=== PATIENT | female | born 1940 | race Caucasian/White ===

== ENCOUNTER → 2017-05-02 | Outpatient (CLI) | payer OTHER, MEDICARE | LOC: CIMAGING 13:56 | PROVIDERS: ATTEND Family Medicine | DX: Z12.31 Encounter for screening mammogram for malignant neoplasm of breast (principal) | CPT/HCPCS: G0202 ==

== ENCOUNTER → 2017-06-18 | Outpatient (CLI) | payer OTHER, MEDICARE ==
[~2017-06-18] MED LIST: IOPAMIDOL (ISOVUE-300) 100 ML BTL ONE
== END ==
LOC: CIMAGING 14:37
PROVIDERS: ATTEND Family Medicine
DX: K57.30 Diverticulosis of large intestine without perforation or abscess without bleeding (principal); K59.00 Constipation, unspecified; R91.1 Solitary pulmonary nodule; E27.9 Disorder of adrenal gland, unspecified; N28.1 Cyst of kidney, acquired; I70.0 Atherosclerosis of aorta; M48.06 Spinal stenosis, lumbar region; M46.96 Unspecified inflammatory spondylopathy, lumbar region; M43.16 Spondylolisthesis, lumbar region
CPT/HCPCS: 74177; Q9967; 80053-PO; 82150-PO; 83690-PO; 85025-PO

== ENCOUNTER 2017-09-09 10:40 | Day surgery (SDC) | payer OTHER, MEDICARE ==
[2017-09-09] MEDS ORDERED: LIDOCAINE 1% 2 ML INJ ONE (10:59)
[2017-09-09] MEDS ORDERED: LIDOCAINE 1% 2 ML INJ ID PRN (11:05)
[2017-09-09] MEDS ORDERED: LR 1,000 ML IV ONE (11:05)
[2017-09-09 11:13] VITALS: PULSE 63
--- NOTE | 2017-09-09 12:01 | PDANEPAE ---
ANE History of Present Illness Patient presents for colonoscopy ANE Past Medical History - Cardiovascular History Hx Hypertension: Yes Hx Arrhythmias: No Hx Chest Pain: No Hx Coronary Artery / Peripheral Vascular Disease: No Hx CHF / Valvular Disease: No Hx Palpitations: No - Pulmonary History Hx COPD: No Hx Asthma/Reactive Airway Disease: No Hx Recent Upper Respiratory Infection: No Hx Oxygen in Use at Home: No Hx Sleep Apnea: No Sleep Apnea Screening Result - Last Documented: Positive - Neurologic History Hx Cerebrovascular Accident: No Hx Seizures: No Hx Dementia: No - Endocrine History Hx Diabetes: No - Renal History Hx Renal Disorders: No - Liver History Hx Hepatic Disorders: No - Neurological & Psychiatric Hx Hx Neurological and Psychiatric Disorders: No - Cancer History Hx Cancer: No - Congenital Disorder History Hx Congenital Disorders: No - GI History Hx Gastrointestinal Disorders: Yes Gastrointestinal History Comment: RUQ PAIN, DIVERTICULITIS - Other Health History Other Health History: NONE - Chronic Pain History Chronic Pain: Yes (RUQ) - Surgical History Prior Surgeries: HYSTERECTOMY,CHOLEYSYSTECTOMY. ANE Review of Systems Review of Systems: - Exercise capacity METS (RN): 4 METS ANE Patient History - Allergies Allergies/Adverse Reactions: No Known Allergies Allergy (Unverified 02/17/14 14:38) - Home Medications Home medications: home medication list seen and reviewed Home Medications: Protonix 12/12/10 [Last Taken 09/06/17] Synthroid 12/12/10 [Last Taken 09/08/17] Toprol Xl 12/12/10 [Last Taken 09/09/17] - NPO status NPO Status: no food or drink >8 hours NPO Since - Liquids (Date): 09/09/17 NPO Since - Liquids (Time): 08:00 NPO Since - Solids (Date): 09/07/17 NPO Since - Solids (Time): 16:00 - Anes Hx Anes Hx: no prior problems - Smoking Hx Smoking Status: Never smoked - Family Anes Hx Family Hx Anesthesia Complications: none ANE Labs/Vital Signs - Vital Signs Blood Pressure: 174/109 Heart Rate: 63 Respiratory Rate: 16 O2 Sat (%): 97 Height: 157.48 cm Weight: 83.915 kg ANE Physical Exam - Airway Neck exam: FROM Mallampati Score: Class 2 Mouth exam: normal dental/mouth exam - Pulmonary Pulmonary: no respiratory distress - Cardiovascular Cardiovascular: regular rate and rhythym - ASA Status ASA Status: II ANE Anesthesia Plan Anesthesia Plan: GA with mask (rba discussed)
--- NOTE | 2017-09-09 12:02 | PDGENHP ---
History & Physical Chief Complaint: phx polyps History of Present Illness: polyps phx Pertinent Past, Social, Family History: no tobacco, no alcohol. fhx= brother cc age 52 Relevant Physical Exam: A+ox3. CTA. S1S2, RRR. +Bs, soft NT Cardiorespiratory Assessment: class 2
[2017-09-09] MEDS ORDERED: PROPOFOL/EMULSION 500 MG/50 ML BOTTLE IV ONE (12:03)
[2017-09-09] MEDS ORDERED: ONDANSETRON 4 MG/2 ML VIAL ONE (12:37)
--- NOTE | 2017-09-09 13:02 | POSTOPPROG ---
Post Op Note Date of Operation: 09/09/17 Surgeon: Torsten Yang Anesthesia: Other (Specify) (IV general) Pre-op Diagnosis: PHX polyps fhx colon cancer Post-op Diagnosis: 5 small poylps removed with cold bx Indication: fhx cc, phx polyps Procedure: colon with cold bx poylpectomy Findings: 3 small ascedning polyps, 1 prox tranverse polyp, 1 descending polyp Inf/Abcess present in the surg proc area at time of surgery?: No EBL: Minimal (few ml from bx) Total fluids administered: 250 ml LR Complications: none immediate
--- NOTE | 2017-09-09 13:06 | POSTANESTH ---
Post Anesthetic Evaluation Cardiovascular Status: Similar to Pre-Op Cond Respiratory Status: Similar to Pre-op Cond. Level of Consciousness/Mental Status: Can Participate in Eval Pain Control: Adequate, Prn Tx Ordered Nausea/Vomiting Control: Adequate, Prn Tx Ordered Complications Possibly Related to Anesthesia: None Noted, Other, See Comments ( Patient coughed up green fluid (small amount) during procedure. OP suction. No decrease in SpO2. No witness aspiration event. Do not expect sequalae. Instructed VETERANS' COORDINATOR to call with concerns.)
--- NOTE | 2017-09-09 13:09 | GIREPORT ---
[facility] - Endoscopy Department Patient Name: Desiree Montes Procedure Date: 09/09/2017 10:59 AM Patient Type: Outpatient Attending MD/ ER Physician: Radha Saavedra Procedure: Colonoscopy Indications: High risk colon cancer surveillance: Personal history of colonic polyps , Family history of colon cancer in a first-degree relative Providers: Simon Yang MD Medicines: Total IV Anesthesia (TIVA), IV general Complications: No immediate complications. Estimated blood loss: Minimal. Description of Procedure: After obtaining informed consent, the scope was passed under direct vis ion. Throughout the procedure, the patient's blood pressure, pulse, and oxyg en saturations were monitored continuously. The Colonoscope was introduced through the anus and advanced to the cecum, identified by the appendice al orifice, ileocecal valve and palpation. The colonoscopy was performed w ith difficulty due to restricted mobility of the colon, significant looping and a tortuous colon. Successful completion of the procedure was aided by u sing manual pressure and straightening and shortening the scope to obtain davis wel loop reduction. The patient tolerated the procedure well. The quality o f the bowel preparation was good. Findings: The digital rectal exam was normal. A 2 mm polyp was found in the ascending colon. The polyp was sessile. T he polyp was removed with a cold biopsy forceps. Resection and retrieval w ere complete. Estimated blood loss was minimal. Two sessile polyps were found in the ascending colon. The polyps were 3 mm in size. These polyps were removed with a piecemeal technique using a c old biopsy forceps. Resection and retrieval were complete. Estimated blood loss was minimal. A 3 mm polyp was found in the proximal transverse colon. The polyp was sessile. The polyp was removed with a piecemeal technique using a cold biopsy forceps. Resection and retrieval were complete. Estimated blood loss was minimal. A 3 mm polyp was found in the descending colon. The polyp was sessile. The polyp was removed with a piecemeal technique using a cold biopsy forcep s. Resection and retrieval were complete. Estimated blood loss was minimal . Multiple small and large-mouthed diverticula were found in the sigmoid colon, descending colon and transverse colon. The exam was otherwise without abnormality. Estimated Blood Loss: Estimated blood loss was minimal. Post Op Diagnosis: - One 2 mm polyp in the ascending colon, removed with a cold biopsy for ceps. Resected and retrieved. - Two 3 mm polyps in the ascending colon, removed piecemeal using a col d biopsy forceps. Resected and retrieved. - One 3 mm polyp in the proximal transverse colon, removed piecemeal us ing a cold biopsy forceps. Resected and retrieved. - One 3 mm polyp in the descending colon, removed piecemeal using a col d biopsy forceps. Resected and retrieved. - Diverticulosis in the sigmoid colon, in the descending colon and in t he transverse colon. - The examination was otherwise normal. Recommendation: - Await pathology results. - My office will call with the pathology result with 5-7 days. If you h ave not heard from my office by -14, do not assume the pathology is chalo l, please call [phone] to get the pathology results. - Repeat colonoscopy in 3 years for surveillance based on pathology res ults. - High fiber diet indefinitely. - 30-35 grams of dietary fiber per day. Can use supplemental fiber. - A high fiber diet may decrease risk of complications from diverticulo sis. There is no need to avoid seeds or nuts. - Patient has a contact number available for emergencies. The signs and symptoms of potential delayed complications were discussed with the pat ient. Return to normal activities tomorrow. Written discharge instructions we re provided to the patient. - Continue present medications. - Discharge patient to home (ambulatory). - Return to primary care physician as previously scheduled. - Thank you for allowing me to help in your patient's care. Do not hesi marley to call with any questions. Attending Participation: I personally performed the entire procedure. Celia Montes M.D Simon Yang MD 09/09/2017 1:08:25 PM This report has been signed electronicallyMathetulio Yang MD Number of Addenda: 0 Note Initiated On: 09/09/2017 10:59 AM Total Procedure Duration Time 0 hours 32 minutes 38 seconds [email or web address]
[2017-09-09 13:47] VITALS: RESP 10; O2SAT 93
[2017-09-09 14:20] VITALS: TEMP 97.7
[2017-09-09 14:21] VITALS: BP 129/67
== END 2017-09-09 14:18 | disposition home or self-care (01) ==
LOC: FSGY 10:40
PROVIDERS: ATTEND Internal Medicine Gastroenterology
PROC: 0DBM8ZX Excision of Descending Colon, Via Natural or Artificial Opening Endoscopic, Diagnostic (ICD-10-PCS; principal; 2017-09-09 12:15)
PROC: 0DBK8ZX Excision of Ascending Colon, Via Natural or Artificial Opening Endoscopic, Diagnostic (ICD-10-PCS; principal; 2017-09-09 12:15)
PROC: 0DBL8ZX Excision of Transverse Colon, Via Natural or Artificial Opening Endoscopic, Diagnostic (ICD-10-PCS; principal; 2017-09-09 12:15)
DX: D12.2 Benign neoplasm of ascending colon (principal); D12.3 Benign neoplasm of transverse colon; Z80.0 Family history of malignant neoplasm of digestive organs
CPT/HCPCS: J2405; J2704

== ENCOUNTER → 2017-12-30 | Outpatient (CLI) | payer OTHER, MEDICARE | LOC: CLAB 11:17 → CIMAGING 11:27 → EDSTATUS 11:27 | PROVIDERS: ATTEND Family Medicine | DX: M50.320 Other cervical disc degeneration, mid-cervical region, unspecified level (principal); M53.82 Other specified dorsopathies, cervical region | CPT/HCPCS: 72050-PO ==

== ENCOUNTER → 2018-05-05 | Outpatient (CLI) | payer OTHER, MEDICARE | LOC: BHCLAF 13:30 | PROVIDERS: ATTEND Internal Medicine Cardiovascular Disease | DX: R06.02 Shortness of breath (principal); R06.81 Apnea, not elsewhere classified; I10 Essential (primary) hypertension | CPT/HCPCS: 93005-PO ==

== ENCOUNTER → 2018-05-11 | Outpatient (CLI) | payer OTHER, MEDICARE | LOC: BHFA 11:00 | PROVIDERS: ATTEND Internal Medicine Cardiovascular Disease | DX: R06.02 Shortness of breath (principal) ==

== ENCOUNTER → 2018-06-17 | Outpatient (CLI) | payer OTHER, MEDICARE | LOC: CIMAGING 10:12 | PROVIDERS: ATTEND Family Medicine | DX: Z12.31 Encounter for screening mammogram for malignant neoplasm of breast (principal) ==

== ENCOUNTER → 2018-06-26 | Outpatient (CLI) | payer OTHER, MEDICARE | LOC: FIMAGING 09:59 | PROVIDERS: ATTEND Family Medicine | DX: Z13.820 Encounter for screening for osteoporosis (principal); Z78.0 Asymptomatic menopausal state; M85.88 Other specified disorders of bone density and structure, other site ==

== ENCOUNTER → 2018-07-07 | Outpatient (CLI) | payer OTHER, MEDICARE | LOC: BHFA 10:00 | PROVIDERS: ATTEND Internal Medicine Cardiovascular Disease | DX: R01.1 Cardiac murmur, unspecified (principal); R06.00 Dyspnea, unspecified ==

== ENCOUNTER → 2018-07-23 | Outpatient (CLI) | payer OTHER, MEDICARE | LOC: FCPNEURO 21:34 | PROVIDERS: ATTEND Psychiatry & Neurology Sleep Medicine | DX: G47.33 Obstructive sleep apnea (adult) (pediatric) (principal) ==

== ENCOUNTER → 2019-03-02 | Outpatient (CLI) | payer OTHER, MEDICARE | LOC: CIMAGING 10:34 | PROVIDERS: ATTEND Family Medicine | DX: R91.1 Solitary pulmonary nodule (principal); R05 Cough; G47.30 Sleep apnea, unspecified | CPT/HCPCS: 36415-PO; 71046-PO ==